=== PATIENT | female | born 1940 | race Hispanic/Latino ===

== ENCOUNTER 2017-06-27 15:14 | Emergency (ER) | payer MEDICARE, OTHER ==
[2017-06-27 15:18] VITALS: BMI 27.4
[2017-06-27 15:31] VITALS: TEMP 98.6
--- NOTE | 2017-06-27 15:37 | ED PDOC ---
Arrival/HPI - General Chief Complaint: Medical Clearance Time Seen by Provider: 06/27/17 15:31 Historian: Patient, Family (son) - History of Present Illness Narrative History of Present Illness (Text): 06/27/17 15:36 This 76 yo female presents to this ED c/o decreased right eye vision x 8 hours. Patient stated she woke up this morning from bed with vision changes. She stated she is able to see light and shadows. Patient stated she was worry, and she took Novolog 6 U, and had 2 hot dogs for Aula 7 today. Patient denies eye pain, eye trauma, eye discharge, diplopia, [place], sob, cp, abdominal pain, urinary symptoms, or abnormal gait. Dr. Godinez, Labour Market Economist Dr. Sampson, PMD Time/Duration: Other (see hpi) Context: Home Past Medical History - Provider Review Nursing Documentation Reviewed: Yes - Infectious Disease Hx of Infectious Diseases: None - Tetanus Immunization Tetanus Immunization: Unknown - Cardiac Hx Cardiac Disorders: Yes Hx Hypertension: Yes - Pulmonary Hx Respiratory Disorders: No - Neurological Hx Neurological Disorder: Yes Hx Seizures: Yes - HEENT Hx HEENT Disorder: No - Renal Hx Renal Disorder: No - Endocrine/Metabolic Hx Endocrine Disorders: Yes Hx Diabetes Mellitus Type 1: Yes Hx Hypothyroidism: Yes - Hematological/Oncological Hx Blood Transfusions: (NOT KNOWN) Hx Blood Transfusion Reaction: No - Integumentary Hx Dermatological Disorder: No - Musculoskeletal/Rheumatological Hx Musculoskeletal Disorders: No - Gastrointestinal Hx Gastrointestinal Disorders: No Hx Bowel Surgery: No - Genitourinary/Gynecological Hx Genitourinary Disorders: No - Psychiatric Hx Psychophysiologic Disorder: No Hx Substance Use: No - Past Surgical History Past Surgical History: No Previous - Surgical History Other/Comment: 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 - Anesthesia Hx Anesthesia: Yes Hx Anesthesia Reactions: No Hx Malignant Hyperthermia: No - Suicidal Assessment Feels Threatened In Home Enviroment: No Family/Social History - Physician Review Nursing Documentation Reviewed: Yes Family/Social History: Other Smoking Status: Never Smoked Hx Alcohol Use: No Hx Substance Use: No Hx Substance Use Treatment: No Allergies/Home Meds Allergies/Adverse Reactions: Allergies No Known Allergies Allergy (Verified 06/27/17 15:18) Home Medications: Home Meds Medication Instructions Recorded Confirmed Glyburide/Metformin HCl 1 tab PO TID 07/16/14 06/27/17 [Glyburide/Metformin 5 mg-500 mg] Levothyroxine Sodium [Synthroid] 50 mcg PO DAILY 07/16/14 06/27/17 Magnesium Oxide 400 mg PO DAILY 07/16/14 06/27/17 Potassium Chloride [Klor-Con 10] 20 meq PO BID 07/16/14 06/27/17 Insulin Aspart, Recombinant 0 units SC DAILY PRN 06/27/17 06/27/17 [Novolog] Insulin Detemir [Levemir] 16 units SC HS 06/27/17 06/27/17 Lisinopril [Zestril] 5 mg PO DAILY 06/27/17 06/27/17 Review of Systems - Review of Systems Constitutional: Normal. absent: Fatigue, Weight Change, Fevers, Night Sweats Eyes: Vision Changes. absent: Photophobia, Eye Pain ENT: Normal Respiratory: Normal. absent: SOB, Cough Cardiovascular: Normal Gastrointestinal: Normal Genitourinary Female: Normal Musculoskeletal: Normal Skin: Normal Neurological: Normal Endocrine: Normal Hemo/Lymphatic: Normal Psychiatric: Normal Physical Exam Vital Signs Temp Pulse Resp BP Pulse Ox 06/27/17 17:38 166/78 H 06/27/17 17:12 71 17 185/84 H 95 06/27/17 15:30 98.6 F 98 H 19 244/110 H 99 Temperature: Afebrile Blood Pressure: Normal Pulse: Regular Respiratory Rate: Normal Appearance: Positive for: Well-Appearing, Non-Toxic, Comfortable Pain Distress: None Mental Status: Positive for: Alert and Oriented X 3 Finger Stick Blood Glucose: 62 - Systems Exam Head: Present: Atraumatic, Normocephalic Pupils: Present: PERRL Extroacular Muscles: Present: EOMI Conjunctiva: Present: Normal Mouth: Present: Moist Mucous Membranes Neck: Present: Normal Range of Motion. No: Meningeal Signs, MIDLINE TENDERNESS Respiratory/Chest: Present: Clear to Auscultation, Good Air Exchange. No: Respiratory Distress, Accessory Muscle Use Cardiovascular: Present: Regular Rate and Rhythm, Normal S1, S2. No: Murmurs Abdomen: Present: Normal Bowel Sounds. No: Tenderness, Distention, Peritoneal Signs Back: Present: Normal Inspection Upper Extremity: Present: Normal Inspection. No: Cyanosis, Edema Lower Extremity: Present: Normal Inspection. No: Edema Neurological: Present: GCS=15, CN II-XII Intact, Speech Normal Skin: Present: Warm, Dry, Normal Color. No: Rashes Psychiatric: Present: Alert, Oriented x 3, Normal Insight, Normal Concentration Medical Decision Making ED Course and Treatment: 06/27/17 18:[address] Godinez iron handler 3 times without a call back. Patient does not want to wait in the ED any longer. She wants to sign AMA. Patient understands risk. 06/27/17 19:[address] Sutherland Labour Market Economist who works with Dr. Godinez, regarding patient history of hypoglycemia, and moderate to severe decreased right eye vision. Tonometer was 16 b/l, Fluorescine stain was negative. No corneal abrasion, or dendritic lesion. No FB. He recommended to order Sed rate and CRP, and to send patient to his office on [address] [facility] for appointment at 8:30pm Re-evaluation Time: 19:03 Reassessment Condition: Re-examined, Unchanged - Lab Interpretations Lab Results: 06/27/17 15:45 06/27/17 15:45 Lab Results 06/27/17 18:30: ESR 11 06/27/17 15:45: Sodium 143, Chloride 105, Potassium 4.1, Carbon Dioxide 24, Anion Gap 18, BUN 33 H, Creatinine 1.1, Est GFR ( Amer) 59, Est GFR (Non- Af Amer) 48, Random Glucose 65 L, Calcium 9.8, Total Bilirubin 0.3, AST 28, ALT 27, Alkaline Phosphatase 60, Lactate Dehydrogenase 525, Total Creatine Kinase 95 , Troponin I < 0.01, NT-Pro-B Natriuret Pep 158, Total Protein 7.8, Albumin 4.8 , Globulin 3.0, Albumin/Globulin Ratio 1.6 06/27/17 15:45: pO2 54, VBG pH 7.31 L, VBG pCO2 54.0, VBG HCO3 27.2, VBG Total CO2 28.9 H, VBG O2 Sat (Calc) 80.2 H, VBG Base Excess 0.0, VBG Potassium 4.5, Sodium 142.0, Chloride 107.0, Glucose 61 L, Lactate 2.1, FiO2 21.0, Venous Blood Potassium 4.5 06/27/17 15:45: Urine Color Light yellow, Urine Appearance Clear, Urine pH 6.0, Ur Specific [place] <= 1.005, Urine Protein Negative, Urine Glucose (UA) Negative, Urine Ketones Negative, Urine Blood Negative, Urine Nitrate Negative, Urine Bilirubin Negative, Urine Urobilinogen 0.2, Ur Leukocyte Esterase Negative 06/27/17 15:45: PT 12.5, INR 1.14 H, APTT 41.0 H 06/27/17 15:45: WBC 9.5 D, RBC 4.59, Hgb 12.3, Hct 38.0, MCV 82.8, MCH 26.8, MCHC 32.4, RDW 14.2, Plt Count 267, MPV 9.7, Gran % 51.4, Lymph % (Auto) 40.3 H , [place] % (Auto) 6.9 H, Eos % (Auto) 1.1 L, Baso % (Auto) 0.3, Gran # 4.88, Lymph # 3.8 H, [place] # 0.7 H, Eos # 0.1, Baso # 0.03 I have reviewed the lab results: Yes Interpretation: No clinic. lab abnormalty (except for elevated BUN, and glucose of 65) - RAD Interpretation Narrative RAD Interpretations (Text): 06/27/17 20:00 Chest x-rays: NAD Radiology Orders: 06/27/17 16:03 CHEST PORTABLE [RAD] Stat - EKG Interpretation Interpreted by ED Physician: Yes (NSR@ 76 bpm. Normal interval) Type: 12 lead EKG Comparison: No previous EKG avail. - Medication Orders Current Medication Orders: Discontinued Medications Fluorescein Sodium ([id number]-M-Qrmpj A.T.) 2 mg OD ONCE ONE Stop: 06/27/17 16:29 Last Admin: 06/27/17 17:11 Dose: 2 mg Disposition/Present on Arrival - Present on Arrival Any Indicators Present on Arrival: No History of DVT/PE: No History of Uncontrolled Diabetes: No Urinary Catheter: No History of Decub. Ulcer: No History Surgical Site Infection Following: None - Disposition Have Diagnosis and Disposition been Completed?: Yes Diagnosis: Decreased vision of right eye, Hypoglycemia Disposition: HOME/ ROUTINE Disposition Time: 19:07 Patient Plan: Discharge Condition: GOOD Discharge Instructions (ExitCare): Blurred Vision (ED) Additional Instructions: Dr. Sutherland Labour Market Economist want to see you at his office tonight at 8:30 pm , office located at [address], [place]. Do not miss this appointment, because it is very important for the medical care of your eye Referrals: [facility], [Non-Staff] - Follow up with primary Jose Roberto Sutherland MD [Medical Doctor] - Follow up with primary Forms: [employer] (Kinyarwanda)
[2017-06-27 16:22] LABS: URINE BILIRUBIN NEGATIVE (NEGATIVE); URINE BLOOD NEGATIVE (NEGATIVE); URINE GLUCOSE (UA) NEGATIVE (NEGATIVE); URINE KETONE NEGATIVE (NEGATIVE); URINE LEUKOCYTE ESTERASE NEGATIVE Leu/uL (NEGATIVE); URINE PROTEIN NEGATIVE mg/dL (<30 mg/dL); URINE UROBILINOGEN 0.2 E.U./dL (<1 E.U./dL)
[2017-06-27 16:23] LABS: BASO # 0.03 K/mm3 (0.0-2.0); BASO % 0.3 % (0.0-3.0); EOS # 0.1 (0.0-0.7); EOS % 1.1 % (1.5-5.0); GRAN # 4.88 (1.4-6.5); GRAN % 51.4 % (50.0-68.0); LYMPH # 3.8 (1.2-3.4); LYMPH % 40.3 % (22.0-35.0); MEAN CELL VOLUME 82.8 fl (80.0-105.0); MEAN CORPUSCULAR HEMOGLOBIN 26.8 pg (25.0-35.0); MEAN CORPUSCULAR HGB CONC 32.4 g/dl (31.0-37.0); MEAN PLATELET VOLUME 9.7 fl (7.0-11.0); MONO # 0.7 (0.1-0.6); MONO % 6.9 % (1.0-6.0); RED CELL DISTRIBUTION WIDTH 14.2 % (11.5-14.5); WHITE BLOOD COUNT 9.5 10^3/ul (4.5-11.0)
[2017-06-27 16:26] LABS: URINE APPEARANCE CLEAR (CLEAR); URINE COLOR LIGHT YELLOW (YELLOW)
[2017-06-27] MEDS ORDERED: Fluorescein 1 mg Ophthalmic Strip OD ONE (16:28)
[2017-06-27 16:31] LABS: ALB/GLOB RATIO 1.6 (1.1-1.8); ALKALINE PHOSPHATASE 60 U/L (38-126); ALT/SGPT 27 U/L (7-56); AST/SGOT 28 U/L (14-36); BILIRUBIN,TOTAL 0.3 mg/dL (0.2-1.3); BLOOD UREA NITROGEN 33 mg/dL (7-21); CALCIUM 9.8 mg/dL (8.4-10.5); CARBON DIOXIDE 24 mmol/L (21-33); CHLORIDE 105 mmol/L (98-107); GFR AFRICAN-AMERICAN 59; GLUCOSE,RANDOM 65 mg/dL (70-110); POTASSIUM 4.1 mmol/L (3.6-5.0); SODIUM 143 mmol/L (132-148); TOTAL PROTEIN 7.8 g/dL (5.8-8.3)
[2017-06-27 16:32] LABS: VENOUS BLOOD PH 7.31 (7.32-7.43)
[2017-06-27 16:50] LABS: INR 1.14 (0.93-1.08)
[2017-06-27 16:57] LABS: TROPONIN I < 0.01 ng/mL
--- NOTE | 2017-06-27 17:04 | RAD ---
HISTORY: hypoglycemia COMPARISON: 07/16/2014 FINDINGS: LUNGS: No active pulmonary disease. PLEURA: No significant pleural effusion identified, no pneumothorax apparent. CARDIOVASCULAR: Normal. OSSEOUS STRUCTURES: No significant abnormalities. VISUALIZED UPPER ABDOMEN: Normal. OTHER FINDINGS: None. IMPRESSION: No active disease.
[2017-06-27 21:51] VITALS: BP 166/85; PULSE 86; RESP 18; O2SAT 99
--- NOTE | 2017-06-28 10:26 | CARD ---
APPROVED REPORT EKG Measurement Heart [id number] ND [id number] [id number] <Conclusion> Normal sinus rhythm Normal ECG
== END 2017-06-27 19:26 | disposition home or self-care (01) ==
LOC: ED 15:14
DX: H54.61 Unqualified visual loss, right eye, normal vision left eye (principal)